=== PATIENT | female | born 1985 | race Caucasian/White ===

== ENCOUNTER 2020-07-12 19:02 | Emergency (ER) | payer MEDICAID ==
[~2020-07-12] VITALS: Ht 162.6 cm; Wt 100.0 kg
[2020-07-12 19:16] VITALS: BP 124/80
== END 2020-07-12 20:58 | disposition left against medical advice (07) ==
LOC: EMS 19:02
DX: Z11.59 Encounter for screening for other viral diseases (principal); Z53.21 Procedure and treatment not carried out due to patient leaving prior to being seen by health care provider